=== PATIENT | female | born 1945 | race Caucasian/White ===

== ENCOUNTER 2017-12-06 08:08 | Day surgery (SDC) | payer MEDICARE, BC ==
[~2017-12-06 08:08] MED LIST: ALPR.25 PO; ASPI81CH PO; ATOR20 PO; CALCAVITD; FISH OIL 1,0001 EAC1 PO; GABA300 PO; Isosorbide Mono30 MG PO; LEVSOD100 PO; LEVSOD75; METO25ER PO; MULVITA; Magnesium Gluconate PO
[2018-01-03] MEDS ORDERED: CHOL10002 PO (11:11)
[2018-01-03] MEDS ORDERED: GLUCOSAMINE &1 EACH PO (11:12)
[2018-01-03] MEDS ORDERED: Isosorbide Mono10 MG PO (11:12)
[2018-01-03] MEDS ORDERED: ISOD40ER PO (11:12)
[2018-01-03] MEDS ORDERED: MERIBIN5 MG PO (11:13)
[2018-01-27] MEDS ORDERED: CALCIUM WITH V1 EACH PO (16:12)
== END 2017-12-06 23:07 | disposition home or self-care (01) ==
LOC: MOI US 08:08
PROC: 0HBU3ZX Excision of Left Breast, Percutaneous Approach, Diagnostic (ICD-10-PCS; principal; 2017-12-06)
DX: N60.92 Unspecified benign mammary dysplasia of left breast (principal); N60.22 Fibroadenosis of left breast
CPT/HCPCS: 19083; 77065; 88305; 88341; 88342; A4648; G0279

== ENCOUNTER 2018-01-05 04:03 | Day surgery (SDC) | payer MEDICARE, BC ==
[~2018-01-05 04:03] MED LIST changes: +CHOL10002 PO; +GLUCOSAMINE &1 EACH PO; +ISOD40ER PO; +Isosorbide Mono10 MG PO; +MERIBIN5 MG PO
[2018-01-27] MEDS ORDERED: CALCIUM WITH V1 EACH PO (16:12)
== END 2018-01-05 22:56 | disposition home or self-care (01) ==
LOC: MOI MAM 04:03 → MOI US 08:00 → MOI MAM 08:00
PROC: 0HHU31Z Insertion of Radioactive Element into Left Breast, Percutaneous Approach (ICD-10-PCS; principal; 2018-01-05)
DX: R92.8 Other abnormal and inconclusive findings on diagnostic imaging of breast (principal)
CPT/HCPCS: 19285; 77065

== ENCOUNTER 2018-01-06 08:22 | Day surgery (SDC) | payer MEDICARE, BC ==
[~2018-01-06] VITALS: Ht 147.3 cm; Wt 85.3 kg
[2018-01-27] MEDS ORDERED: CALCIUM WITH V1 EACH PO (16:12)
== END 2018-01-06 22:36 | disposition home or self-care (01) ==
LOC: ORSCMMR 08:22
PROVIDERS: Surgery
PROC: 0HBU0ZZ Excision of Left Breast, Open Approach (ICD-10-PCS; principal; 2018-01-06 10:00)
DX: C50.412 Malignant neoplasm of upper-outer quadrant of left female breast (principal); D05.12 Intraductal carcinoma in situ of left breast; R92.8 Other abnormal and inconclusive findings on diagnostic imaging of breast; I10 Essential (primary) hypertension; G47.33 Obstructive sleep apnea (adult) (pediatric); I25.10 Atherosclerotic heart disease of native coronary artery without angina pectoris; E03.9 Hypothyroidism, unspecified; E66.01 Morbid (severe) obesity due to excess calories; Z68.39 Body mass index [BMI] 39.0-39.9, adult; Z79.82 Long term (current) use of aspirin; Z79.899 Other long term (current) drug therapy
CPT/HCPCS: 88307; 88341; 88342; 88360; J0690; J1100; J2250; J2405; J3010; J7120

== ENCOUNTER 2018-01-28 10:25 | Day surgery (SDC) | payer MEDICARE, BC ==
[~2018-01-28] VITALS: Ht 147.3 cm; Wt 83.9 kg
[~2018-01-28 10:25] MED LIST changes: +CALCIUM WITH V1 EACH PO
== END 2018-01-28 14:40 | disposition home or self-care (01) ==
LOC: NM 10:25 → ORSCMMR 10:25 → NM 10:26 → ORSCMMR 10:26 → NM 11:00 → ORSCMMR 14:40 → NM 14:40
PROVIDERS: Surgery
PROC: 07B60ZX Excision of Left Axillary Lymphatic, Open Approach, Diagnostic (ICD-10-PCS; principal; 2018-01-28 12:30)
DX: C50.412 Malignant neoplasm of upper-outer quadrant of left female breast (principal); D36.0 Benign neoplasm of lymph nodes; I25.10 Atherosclerotic heart disease of native coronary artery without angina pectoris; G47.33 Obstructive sleep apnea (adult) (pediatric); E03.9 Hypothyroidism, unspecified; Z79.82 Long term (current) use of aspirin; Z79.899 Other long term (current) drug therapy
CPT/HCPCS: 38792; 88307; 88342; A9520; J2250; J2370; J2405; J3010; J7120; Q9968

== ENCOUNTER 2019-04-03 21:55 | Emergency (ER) | payer MEDICARE, BC ==
[~2019-04-03] VITALS: Ht 149.9 cm; Wt 81.7 kg
[2019-04-03] MEDS ORDERED: ANASTROZOLE 1MG PO (22:38)
[2019-04-03 23:17] LABS: Bilirubin, Urine Neg (Neg); Blood, Urine Neg (Neg); Glucose Qualitative, Urine Neg (Neg); Ketones, Urine Neg (Neg); Leukocyte Esterase, Urine 1+ (Neg); Nitrite, Urine Neg (Neg); Protein, Urine Neg (Neg); Source, Urine Clean Catch; Urobilinogen, Urine NORM (Normal); pH, Urine 6.5 (5.0-8.0)
[2019-04-03 23:35] LABS: Appearance, Urine Clear (Clear); Color, Urine Pale Yellow (P-Yellow)
[2019-04-03 23:37] LABS: Bacteria Not Seen /hpf; Red Blood Cells, Urine Not Seen /hpf (0-2); Squamous Epithelial Cells Not Seen /hpf (Few); White Blood Cells, Urine 0-2 /hpf (0-5)
[2019-04-04 00:24] LABS: BASOPHILS ABSOLUTE AUTO 0.02 K/mm3 (0.00-0.23); BASOPHILS PERCENT AUTO 1 % (0-2); EOSINOPHILS ABSOLUTE AUTO 0.12 K/mm3 (0.00-0.68); EOSINOPHILS PERCENT AUTO 3 % (0-6); Hematocrit 36.1 % (33.0-51.0); Hemoglobin 11.6 g/dL (11.5-16.0); IMMATURE GRAN ABSOLUTE AUTO 0.01 K/mm3 (0.00-0.10); IMMATURE GRAN PERCENT AUTO 0 % (0-1); LYMPHOCYTES ABSOLUTE AUTO 1.36 K/mm3 (0.84-5.20); LYMPHOCYTES PERCENT AUTO 32 % (21-46); MONOCYTES ABSOLUTE AUTO 0.55 K/mm3 (0.16-1.47); MONOCYTES PERCENT AUTO 13 % (4-13); Mean Corpuscular HGB 29.6 pg (26.0-34.0); Mean Corpuscular HGB Conc 32.1 g/dL (31.5-36.5); Mean Corpuscular Volume 92 fL (80-100); Mean Platelet Volume 8.7 fL (9.1-12.4); NEUTROPHILS ABSOLUTE AUTO 2.24 K/mm3 (1.96-9.15); NEUTROPHILS PERCENT AUTO 52 % (41-73); Platelet Count 154 K/mm3 (150-400); RDW Coefficient Variation 13.7 % (11.7-14.2); Red Blood Cell Count 3.92 M/mm3 (3.80-5.20)
[2019-04-04 00:38] LABS: Bun/Creatinine Ratio 29.5 (12.0-20.0); Calcium, Blood 9.4 mg/dL (8.5-10.1); Creatinine, Blood 1.05 mg/dL (0.40-1.00); Potassium, Blood 4.2 mmol/L (3.5-5.5)
== END 2019-04-04 01:48 | disposition home or self-care (01) ==
LOC: ER 21:55
PROVIDERS: Emergency Medicine; Physician Assistant
DX: M54.41 Lumbago with sciatica, right side (principal); I10 Essential (primary) hypertension; Z85.3 Personal history of malignant neoplasm of breast; E03.9 Hypothyroidism, unspecified; Z88.0 Allergy status to penicillin; Z88.8 Allergy status to other drugs, medicaments and biological substances; Z79.899 Other long term (current) drug therapy; Z79.82 Long term (current) use of aspirin; Z13.820 Encounter for screening for osteoporosis; M89.9 Disorder of bone, unspecified; M85.851 Other specified disorders of bone density and structure, right thigh
CPT/HCPCS: 72100; 77080; 80048; 81001; 85025; 87086; 99283-25; J1100

== ENCOUNTER 2021-11-19 13:27 | Day surgery (SDC) | payer MEDICARE, BC ==
[~2021-11-19] VITALS: Ht 147.3 cm; Wt 80.9 kg
[~2021-11-19 13:27] MED LIST changes: +ANASTROZOLE 1MG PO
[2021-11-19] MEDS ORDERED: Lisinopril2.5 MG (13:43)
[2021-11-19] MEDS ORDERED: Zoloft50 MG (13:43)
[2021-11-19] MEDS ORDERED: FISH OIL 1,2001 EAC7 (13:43)
== END 2021-11-19 16:20 | disposition home or self-care (01) ==
LOC: ORSCSDS 13:27
PROVIDERS: Internal Medicine Gastroenterology
PROC: 0DBM8ZX Excision of Descending Colon, Via Natural or Artificial Opening Endoscopic, Diagnostic (ICD-10-PCS; principal; 2021-11-19 14:45)
PROC: 0DBE8ZX Excision of Large Intestine, Via Natural or Artificial Opening Endoscopic, Diagnostic (ICD-10-PCS; principal; 2021-11-19 14:45)
PROC: 0DBK8ZX Excision of Ascending Colon, Via Natural or Artificial Opening Endoscopic, Diagnostic (ICD-10-PCS; principal; 2021-11-19 14:45)
DX: R19.4 Change in bowel habit (principal); D12.2 Benign neoplasm of ascending colon; D12.4 Benign neoplasm of descending colon; Z86.010 Personal history of colon polyps; K57.30 Diverticulosis of large intestine without perforation or abscess without bleeding; G47.33 Obstructive sleep apnea (adult) (pediatric); E66.01 Morbid (severe) obesity due to excess calories; Z68.39 Body mass index [BMI] 39.0-39.9, adult; E03.9 Hypothyroidism, unspecified; I25.10 Atherosclerotic heart disease of native coronary artery without angina pectoris; Z79.82 Long term (current) use of aspirin; Z79.899 Other long term (current) drug therapy
CPT/HCPCS: 88305; J2704; J7120

== ENCOUNTER 2023-06-29 07:37 | Day surgery (SDC) | payer MEDICARE, BC ==
[~2023-06-29] VITALS: Ht 147.3 cm; Wt 86.8 kg
[2023-06-29] VITALS (12 sets, daily range): BP systolic 91–131; BP diastolic 51–80
[~2023-06-29 07:37] MED LIST changes: -ANASTROZOLE 1MG PO; +ANASTROZOLE PO; +FISH OIL 1,2001 EAC7 PO; +Lisinopril2.5 MG PO; -MULVITA; +MULVITA PO; +Zoloft50 MG PO
[2023-06-29] MEDS ORDERED: ROSU5 PO (09:18)
--- NOTE | 2023-06-29 09:48 | NUR ---
Ambulatory in Day Surgery. History, Chart, Medications and Allergies reviewed before start of procedure. Lungs clear T/O to Auscultation. Patient confirms NPO status and agrees with scheduled surgery. Pre-Op teaching done. Pt verbalizes understanding. Patient States Post-Procedure ride home has been arranged. PT BELONGINGS PLACED UNDERNEATH GURNEY. PT GLASSES TAKEN TO PACU FOR SAFEKEEPING.
--- NOTE | 2023-06-29 13:10 | NUR ---
06/29/23 1310 Jesscia Ames VERIFICATIONS: EDIT CHART.
--- NOTE | 2023-06-29 17:46 | NUR ---
SHIFT SUMMARY POD0 L TKA, A/OX4, VSS, TOLERATING PO, PAIN WELL MANAGED, UP TO THE BATHROOM AFTER SPINAL WORE OFF, UP TO CHAIR FOR DINNER, ABLE TO PARTICIPATE WITH THERAPY TODAY, DISCUSSED PLAN OF CARE FOR TODAY AND TOMORROW WITH HER INCLUDING PLANS FOR THERAPY. NO ACUTE EVENTS THIS SHIFT, CALL LIGHT IN REACH.
[2023-06-30 00:25] VITALS: BP 130/62
[2023-06-30 04:20] VITALS: BP 132/58
[2023-06-30 05:22] LABS: BASOPHILS PERCENT AUTO 0 % (0-2); EOSINOPHILS PERCENT AUTO 0 % (0-6); Hematocrit 33.2 % (33.0-51.0); Hemoglobin 10.9 g/dL (11.5-16.0); IMMATURE GRAN ABSOLUTE AUTO 0.03 K/mm3 (0.00-0.10); IMMATURE GRAN PERCENT AUTO 0 % (0-1); LYMPHOCYTES ABSOLUTE AUTO 0.61 K/mm3 (0.84-5.20); LYMPHOCYTES PERCENT AUTO 8 % (21-46); MONOCYTES ABSOLUTE AUTO 0.55 K/mm3 (0.16-1.47); MONOCYTES PERCENT AUTO 7 % (4-13); Mean Corpuscular HGB 30.7 pg (26.0-34.0); Mean Corpuscular HGB Conc 32.8 g/dL (31.5-36.5); Mean Corpuscular Volume 94 fL (80-100); Mean Platelet Volume 8.9 fL (9.1-12.4); NEUTROPHILS PERCENT AUTO 85 % (41-73); Platelet Count 153 K/mm3 (150-400); RDW Coefficient Variation 13.2 % (11.7-14.2); RDW Standard Deviation 45.3 fL (35.1-46.3); Red Blood Cell Count 3.55 M/mm3 (3.80-5.20); White Blood Cell Count 7.89 K/mm3 (4.00-11.30)
[2023-06-30 05:48] LABS: Bun/Creatinine Ratio 20.5 (12.0-20.0); Calcium, Blood 8.6 mg/dL (8.5-10.1); Creatinine, Blood 1.27 mg/dL (0.40-1.00); Potassium, Blood 4.7 mmol/L (3.5-5.5)
--- NOTE | 2023-06-30 06:40 | NUR ---
SHIFT SUMMARY POD 1 L TKA, RECEIVED SPINAL. PT CONTINUES TO REPORT MINIMAL PAIN. PT UP TO BATHROOM 2X THIS SHIFT. PT DENIES PASSING GAS BUT REPORTS EXCESSIVE BELCHING. PT RECEIVED STARRY SODA AND REPORTED GREAT RELIEF. PT A&OX4, VERY PLEASANT AND COOPERATIVE. NEW IV STARTED TO L AC TO COMPLETE ABX/ TORADOL PER EMAR. 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 NO ACUTE CHANGES THIS SHIFT. CALL LIGHT W/IN REACH. PT PLANS FOR DISCHARGE HOME TODAY.
[2023-06-30 07:34] VITALS: BP 133/60
--- NOTE | 2023-06-30 11:22 | NUR ---
DISCHARGE SUMMARY POD1 L TKA, A/OX4, VSS, TOLERATING PO, PAIN WELL MANAGED, VOIDING WELL, AMBULATING WITH MINIMAL ASSISTANCE AND FWW, WORKED WITH THERAPY THIS AM AND CLEARED, INCISION DRESSING ON L KNEE IS C/D/I WITH MINIMAL SWELLING, PT HAS ICE PACK IN PLACE UP UNTIL DISCHARGE WHILE SHE WAS SEATED. DISCUSSSED DISCHARGE INFORMATION WITH HER INCLUDING HOME CARE, MEDICATIONS IN WHICH THIS RN PROVIDED HER SCRIPTS FROM SURGEON, AND HOME CARE INSTRUCTIONS. CONTACT INFORMATION GIVEN SHOULD SHE HAVE QEUSTIONS AFTER SHE LEAVES, IV ACCESS DEVICE REMOVED AND NO OTHER DEVICES IN PLACE AT TIME OF DISCHARGE. PT ESCORTED OUT VIA WC TO PRIVATE AUTO TO GO HOME.
== END 2023-06-30 11:20 | disposition home or self-care (01) ==
LOC: ORSCMMR 07:37 → ORD 09:15 → ORSCMMR 09:15 → ORD 11:00 → SURS 11:41 → ORSCMMR 06-30 11:20
PROVIDERS: Orthopaedic Surgery
PROC: 0SRD0JA Replacement of Left Knee Joint with Synthetic Substitute, Uncemented, Open Approach (ICD-10-PCS; principal; 2023-06-29 09:15)
DX: M17.12 Unilateral primary osteoarthritis, left knee (principal); E78.5 Hyperlipidemia, unspecified; E03.9 Hypothyroidism, unspecified; I12.9 Hypertensive chronic kidney disease with stage 1 through stage 4 chronic kidney disease, or unspecified chronic kidney disease; N18.30 Chronic kidney disease, stage 3 unspecified; Z79.899 Other long term (current) drug therapy; G47.33 Obstructive sleep apnea (adult) (pediatric); Z79.82 Long term (current) use of aspirin
CPT/HCPCS: 36415; 73560-LT; 80048; 85025; 97110; 97116; 97162; A9270; C1776; J0171; J0690; J0735; J1100; J1885; J2250; J2405; J2704; J2795; J3010; J7120

== ENCOUNTER 2024-06-12 03:11 | Day surgery (SDC) | payer MEDICARE, BC ==
[~2024-06-12 03:11] MED LIST changes: +ROSU5 PO
[2024-06-12 09:25] VITALS: BP 132/63
[2024-06-12] MEDS ORDERED: FISH OIL 1,2001 EAC4 PO (13:09)
[2024-06-12] MEDS ORDERED: Acetaminophen325 M1 PO (13:09)
--- NOTE | 2024-06-12 13:19 | NUR ---
PT ARRIVED TO [facility] AT 0925. PT STATES SHE LAST VOIDED AT 0830 THIS MORNING AND HAS HAD 8OZ OF WATER AND 8OZ OF COFFEE. BLADDER SCANNED PT AND ONLY 52ML'S SCANNED. PT DOES NOT HAVE THE URGE TO URINATE. PT GIVEN16 OZ OF WATER AND 10 OZ OF COFFEE. PT ABLE TO DRINK FLUIDS QUICKLY. PT RESCANNED AND BLADDER SCAN REVEALS 288ML. PT UP TO BATHROOM TO VOID AND VOIDS 225 ML CLEAR YELLOW URINE. POST BLADDER SCAN INDICATES 12ML LEFT IN BLADDER.
--- NOTE | 2024-06-12 13:26 | NUR ---
BLADDER SCAN AND VITAL SIGNS REPORTS FAXED TO DR MAN
[2024-06-19] MEDS ORDERED: OXYB5 PO (12:39)
[2024-06-19] MEDS ORDERED: Norco 10-325 T1 EACH PO (12:39)
== END 2024-06-12 10:38 | disposition home or self-care (01) ==
LOC: ATC 03:11
DX: N39.46 Mixed incontinence (principal); I25.10 Atherosclerotic heart disease of native coronary artery without angina pectoris; I10 Essential (primary) hypertension; Z88.0 Allergy status to penicillin; Z88.8 Allergy status to other drugs, medicaments and biological substances; Z79.899 Other long term (current) drug therapy; E78.5 Hyperlipidemia, unspecified; E03.9 Hypothyroidism, unspecified
CPT/HCPCS: 51798; 99214

== ENCOUNTER 2024-07-11 11:02 | Day surgery (SDC) | payer MEDICARE, BC ==
[~2024-07-11] VITALS: Ht 147.3 cm; Wt 83.9 kg
[2024-07-11] VITALS (14 sets, daily range): BP systolic 101–138; BP diastolic 46–77
[~2024-07-11 11:02] MED LIST changes: +Acetaminophen325 M1 PO; +FISH OIL 1,2001 EAC4 PO; +Norco 10-325 T1 EACH PO; +OXYB5 PO
[2024-07-11] MEDS ORDERED: Chlorhexidine Mouth Care 15 ML UDC MT SCH (11:05)
[2024-07-11] MEDS ORDERED: OxyCODONE HCL 10 MG TABCR PO SCH (11:05)
[2024-07-11] MEDS ORDERED: Lactated Ringer's 1,000 ML IV SCH ×2 (11:05→13:40)
[2024-07-11] MEDS ORDERED: CeFAZolin Sodium 2,000 MG in NS 100 ML IV SCH ×2 (11:05→22:15)
[2024-07-11] MEDS ORDERED: Ropivacaine 0.5% HCl/Pf 123.125 MG,EPINEPHrine HCL 0.25 MG,Ketorolac Tromethamine 15 MG... INFIL SCH (11:05)
[2024-07-11] MEDS ORDERED: Tranexamic Acid 100 ML IV SCH (11:05)
[2024-07-11] MEDS ORDERED: Acetaminophen 500 MG Tab PO SCH ×2 (12:00→16:00)
--- NOTE | 2024-07-11 12:16 | NUR ---
Ambulatory in Day SurgeryPre-Op teaching done. Pt verbalizes understanding. History, Chart, Medications and Allergies reviewed before start of procedure.Patient confirms NPO status and agrees with scheduled surgery.
[2024-07-11] MEDS ORDERED: Lidocaine HCl 2% 20 ML MDV ONE (12:29)
[2024-07-11] MEDS ORDERED: propofoL 20 ML IV ONE ×2 (12:30→15:27)
[2024-07-11] MEDS ORDERED: Bisacodyl 10 MG Supp PR PRN (13:35)
[2024-07-11] MEDS ORDERED: OxyCODONE HCL 5 MG TAB PO PRN ×2 (13:35)
[2024-07-11] MEDS ORDERED: Promethazine HCl 25 MG Tab PO PRN (13:35)
[2024-07-11] MEDS ORDERED: FLU VACC TS2024-25(6MOS UP)/PF 45 MCG/0.5 ML SYRINGE IM SCH (13:40)
[2024-07-11] MEDS ORDERED: DiphenhydrAMINE HCL 25 MG Cap PO PRN (13:40)
[2024-07-11] MEDS ORDERED: HYDROmorphone HCl/Pf 1MG SYR IV PRN (13:40)
[2024-07-11] MEDS ORDERED: Magnesium Hydroxide Conc 10 ML UDC PO PRN (13:40)
[2024-07-11] MEDS ORDERED: Metoclopramide HCl 5MG / ML 2ML Vial IV PRN (13:45)
[2024-07-11] MEDS ORDERED: Ondansetron HCl 2 MG / ML 2ML Vial IV PRN (13:45)
[2024-07-11] MEDS ORDERED: propofoL 50 ML IV ONE (13:48)
[2024-07-11] MEDS ORDERED: Midazolam HCl 1MG / ML 2ML Vial IV ONE (13:50)
[2024-07-11] MEDS ORDERED: ePHEDrine Sulfate 50 MG/ML 1ML Injection ONE (14:25)
[2024-07-11] MEDS ORDERED: Ondansetron HCl 2 MG / ML 2ML Vial ONE (14:50)
[2024-07-11] MEDS ORDERED: Dexamethasone Sod Phos 10 MG/ML 1ML VIAL ONE (14:50)
[2024-07-11] MEDS ORDERED: Phenylephrine HCl 100 MCG/ML-NS 10MLSYR (1MG/10ML) ONE (14:50)
--- NOTE | 2024-07-11 17:38 | NUR ---
SHIFT SUMMARY PATIENT IS PO0 R TKA. AQUACEL AND BERNICE WRAP IN PLACE C/D/I. ICE AND JOHN HOSE IN PLACE. AWAITING POST-OP VOID. DENIES N/V. DENIES PAIN. HAS SENSATION THROUGH THIGH AND UPPER LEG BUT DOES REPORT NUMBNESS TO LOWER LEG AND FOOT. SPINAL BLOCK DURING OR. TXA ADMINISTERED AND IVF RUNNING TKO. TOLERATING PO INTAKE. CALL LIGHT IN REACH.
[2024-07-11] MEDS ORDERED: Ketorolac Tromethamine 15mg Vial IV SCH (18:00)
[2024-07-11] MEDS ORDERED: Lisinopril 5 MG Tab PO SCH (18:00)
[2024-07-11] MEDS ORDERED: oxyBUTYnin chloride 5 MG TAB PO SCH (21:00)
[2024-07-11] MEDS ORDERED: Docusate Sodium 100 MG Cap PO SCH (21:00)
[2024-07-11] MEDS ORDERED: Gabapentin 300 MG Cap PO SCH (21:00)
[2024-07-12 01:04] VITALS: BP 109/52
--- NOTE | 2024-07-12 02:01 | NUR ---
ASSUMPTION OF CARE RECEIVED REPORT FROM SOCO MARKS. S/P R TKA. PT TOELRATING GF DIET. POLAR PACK IN USE. AMB USING FWW c 1 PERSON ASSIST. VOIDED. HOME CPAP IN USE. PT ASLEEP c RISE/FALL OF CHEST. CALL LIGHT IN REACH, BED IN LOWEST POSITION.
[2024-07-12 03:43] VITALS: BP 118/50
[2024-07-12 04:42] LABS: BASOPHILS PERCENT AUTO 0 % (0-2); EOSINOPHILS PERCENT AUTO 0 % (0-6); Hematocrit 28.6 % (33.0-51.0); Hemoglobin 9.4 g/dL (11.5-16.0); IMMATURE GRAN ABSOLUTE AUTO 0.01 K/mm3 (0.00-0.10); IMMATURE GRAN PERCENT AUTO 0 % (0-1); LYMPHOCYTES ABSOLUTE AUTO 0.49 K/mm3 (0.84-5.20); LYMPHOCYTES PERCENT AUTO 9 % (21-46); MONOCYTES PERCENT AUTO 2 % (4-13); Mean Corpuscular HGB 30.1 pg (26.0-34.0); Mean Corpuscular HGB Conc 32.9 g/dL (31.5-36.5); Mean Corpuscular Volume 92 fL (80-100); Mean Platelet Volume 9.3 fL (9.1-12.4); NEUTROPHILS ABSOLUTE AUTO 4.93 K/mm3 (1.96-9.15); NEUTROPHILS PERCENT AUTO 89 % (41-73); Platelet Count 141 K/mm3 (150-400); RDW Standard Deviation 47.1 fL (35.1-46.3); Red Blood Cell Count 3.12 M/mm3 (3.80-5.20); White Blood Cell Count 5.53 K/mm3 (4.00-11.30)
[2024-07-12 05:06] LABS: Bun/Creatinine Ratio 20.7 (12.0-20.0); Creatinine, Blood 1.4 mg/dL (0.40-1.00); Potassium, Blood 4.5 mmol/L (3.5-5.5)
--- NOTE | 2024-07-12 05:06 | NUR ---
SHIFT SUMMARY POD 1 R TKA. NO ACUTE CHANGES OVERNIGHT. VSS, USED HOME CPAP OVERNIGHT. TOLERATING ORALS. VOIDING. AMBULATES USING FWW c 1 PERSON ASSIST. PT REPORTS PAIN TOLERABLE, MEDICATED PER EMAR, POLAR PACK IN USE. ANTICIPATED DISCHARGE LATER TODAY. CALL LIGHT IN REACH, BED IN LOWEST POSITION, WILL REPORT TO DAY RN.
[2024-07-12 08:34] VITALS: BP 116/53
[2024-07-12] MEDS ORDERED: Pravastatin Sodium 20 MG Tab PO SCH (09:00)
[2024-07-12] MEDS ORDERED: Cholecalciferol 1000 Unit Tablet (=25MCG) PO SCH (09:00)
[2024-07-12] MEDS ORDERED: Multivitamins 1 Tab PO SCH (09:00)
[2024-07-12] MEDS ORDERED: Isosorbide Mononitrate 30 MG TABCR PO SCH (09:00)
[2024-07-12] MEDS ORDERED: Aspirin 81 MG Chew PO SCH (09:00)
[2024-07-12] MEDS ORDERED: Levothyroxine Sodium 0.1 MG Tab PO SCH (09:00)
[2024-07-12] MEDS ORDERED: Sertraline HCl 50 MG Tab PO SCH (09:00)
[2024-07-12] MEDS ORDERED: Metoprolol Succinate 25 MG TABCR PO SCH (09:00)
--- NOTE | 2024-07-12 10:08 | NUR ---
DISCHARGE PT WORKED w/ THERAPY. PAIN WELL CONTROLLED. EATING, DRINKING, & VOIDING WELL. MALICK & POLAR PACK SENT w/ PT. ESCORTED OUT VIA W/C.
== END 2024-07-12 10:10 | disposition home or self-care (01) ==
LOC: ORSCMMR 11:02 → ORD 12:30 → ORSCMMR 12:30 → SURS 16:54 → ORSCMMR 07-12 10:10 → SURS 07-12 10:10
PROVIDERS: Orthopaedic Surgery
PROC: 8E0Y0CZ Robotic Assisted Procedure of Lower Extremity, Open Approach (ICD-10-PCS; principal; 2024-07-11 12:30)
PROC: 0SRC0JA Replacement of Right Knee Joint with Synthetic Substitute, Uncemented, Open Approach (ICD-10-PCS; principal; 2024-07-11 12:30)
DX: M17.11 Unilateral primary osteoarthritis, right knee (principal); Z96.652 Presence of left artificial knee joint; E03.9 Hypothyroidism, unspecified; G47.33 Obstructive sleep apnea (adult) (pediatric); I12.9 Hypertensive chronic kidney disease with stage 1 through stage 4 chronic kidney disease, or unspecified chronic kidney disease; N18.30 Chronic kidney disease, stage 3 unspecified; Z79.899 Other long term (current) drug therapy
CPT/HCPCS: 36415; 73560-RT; 80048; 85025; 94762; 97110; 97116; 97162; 97530; A9270; C1713; C1776; J0171; J0690; J0735; J1100; J1885; J2250; J2371; J2405; J2704; J2795

== ENCOUNTER → 2024-07-19 | Outpatient (CLI) | payer MEDICARE, BC | LOC: LAB SHORT 14:19 → LAB 14:19 | DX: N39.0 Urinary tract infection, site not specified (principal) | CPT/HCPCS: 87077; 87086; 87186 ==

== ENCOUNTER → 2025-07-27 | Outpatient (CLI) | payer OTHER ==
[2025-07-27 14:16] LABS: Creatinine, Urine Random 40.70 mg/dL (27.00-270.00)
[2025-07-27 14:23] LABS: Microalb/Creat Ratio UR, Rand Unable to Calculate mg/g (0.000-30.000); Microalbumin, Random Urine <5.000 mg/L (0.000-20.000)
== END | disposition home or self-care (01) ==
LOC: LAB SHORT 11:35 → LAB 11:35 → LAB FUT 04-03 08:20
PROVIDERS: Internal Medicine
DX: E03.9 Hypothyroidism, unspecified (principal); I12.9 Hypertensive chronic kidney disease with stage 1 through stage 4 chronic kidney disease, or unspecified chronic kidney disease; N18.31 Chronic kidney disease, stage 3a; E55.9 Vitamin D deficiency, unspecified; R73.9 Hyperglycemia, unspecified; Z79.899 Other long term (current) drug therapy
CPT/HCPCS: 82043; 82570